=== PATIENT | female | born 1995 | race Two or more races ===

== ENCOUNTER 2017-03-16 18:46 | Emergency (ER) | payer OTHER ==
--- NOTE | 2017-03-16 19:55 | ER Document Report ---
ED Medical Screen (RME) - General Chief Complaint: Vag Bleeding, +preg <12wks Stated Complaint: VAGINAL BLEEDING Time Seen by Provider: 03/16/17 19:50 Notes: This 21-year-old female patient who reports last menstrual period on 12/06/2016, no care at this point, has first OB appointment this week. She states she is blood type O+, she reports brown ready discharge started about 5:30 PM this evening. I have greeted and performed a rapid initial assessment of this patient. A comprehensive ED assessment and evaluation of the patient, analysis of test results and completion of the medical decision making process will be conducted by additional ED providers. TRAVEL OUTSIDE OF THE [place] IN LAST 30 DAYS: No - Related Data Allergies/Adverse Reactions: No Known Allergies Allergy (Verified 03/16/17 19:49) Home Medications: Current Home Medications Pnv,Calcium 72/Iron/Folic Acid [ Plus Tablet] 1 tab PO DAILY 03/16/17 [ History] Past Medical History Renal/ Medical History: Denies: Hx Peritoneal Dialysis Physical Exam - Vital signs Vitals: Temp Pulse Resp BP Pulse Ox 98.9 F 79 16 135/64 H 98 03/16/17 19:08 03/16/17 19:08 03/16/17 19:08 03/16/17 19:08 03/16/17 19:08 Course - Vital Signs Vital signs: Temp Pulse Resp BP Pulse Ox 98.9 F 79 16 135/64 H 98 03/16/17 19:08 03/16/17 19:08 03/16/17 19:08 03/16/17 19:08 03/16/17 19:08
[2017-03-16 20:30] LABS: APPEARANCE,URINE SLIGHTLY-CLOUDY; BILIRUBIN,URINE NEGATIVE (NEGATIVE); GLUCOSE, URINE NEGATIVE (NEGATIVE); KETONES,URINE NEGATIVE (NEGATIVE); LEUKOCYTE ESTERASE,URINE NEGATIVE (NEGATIVE); NITRITE,URINE NEGATIVE (NEGATIVE); PROTEIN,URINE NEGATIVE (NEGATIVE); URINE SPECIFIC GRAVITY 1.024; UROBILINOGEN,URINE NEGATIVE mg/dL (<2.0)
--- NOTE | 2017-03-16 20:51 | RADIOLOGY REPORT (SQ) ---
EXAM DESCRIPTION: U/S OB TRANSVAGINAL W/O DOP COMPLETED DATE/TIME: 03/16/2017 8:32 pm REASON FOR STUDY: brown blood DC today COMPARISON: None. TECHNIQUE: Transabdominal static and realtime grayscale images acquired of the pelvis. Additional se lected spectral and color Doppler images recorded. All images stored on PACs. bHCG: Not available. LIMITATIONS: None. FINDINGS: FETUS: IUP with no detectable cardiac activity. EGA: 9 week 3 day FHR: 0 beats per minute. SUBCHORIONIC BLEED: No. SIZE OF BLEED: Not applicable. UTERUS: No masses. No anomalies. CERVICAL LENGTH: 3.6 cm. Closed. RIGHT ADNEXA: Normal ovary with normal vascular flow. No adnexal free fluid. No adnexal masses. LEFT ADNEXA: Ovary not identified. No adnexal free fluid. No adnexal masses. FREE FLUID: None. IMPRESSION: IUP with no detectable cardiac activity consistent with demise. EGA 9 week 3 day. Trimester of : First - 0 to 13 weeks. TECHNICAL DOCUMENTATION: JOB ID: [id number]- All Rights Reserved
[2017-03-16 21:20] LABS: ALANINE AMINOTRANSFERASE 36 U/L (9-52); ALBUMIN 3.7 g/dL (3.5-5.0); ALKALINE PHOSPHATASE 75 U/L (38-126); ANION GAP 10 (5-19); ASPARTATE AMINO TRANSFERASE 22 U/L (14-36); BILIRUBIN,DIRECT 0.1 mg/dL (0.0-0.4); BILIRUBIN,TOTAL 0.3 mg/dL (0.2-1.3); BLOOD UREA NITROGEN 9 mg/dL (7-20); CALCIUM 9.2 mg/dL (8.4-10.2); CARBON DIOXIDE 24 mmol/L (22-30); CHLORIDE 103 mmol/L (98-107); CREATININE RESULT 0.63 mg/dL (0.52-1.25); GLUCOSE 90 mg/dL (75-110); POTASSIUM 3.8 mmol/L (3.6-5.0); SODIUM 136.8 mmol/L (137-145); TOTAL PROTEIN 6.3 g/dL (6.3-8.2)
--- NOTE | 2017-03-16 21:29 | ER Document Report ---
ED General - General Chief Complaint: Vag Bleeding, +preg <12wks Stated Complaint: VAGINAL BLEEDING Time Seen by Provider: 03/16/17 19:50 Mode of Arrival: Ambulatory Information source: Patient Notes: 21-year-old female 3 is approximately 14 weeks with a history of previous miscarriage and ectopic presents after having sudden brown spotting prior to arrival. Patient denies any abdominal pain denies any bleeding denies any nausea or vomiting TRAVEL OUTSIDE OF THE [place] IN LAST 30 DAYS: No - HPI Onset: Just prior to arrival Onset/Duration: Sudden Quality of pain: No pain Severity: Mild Pain Level: Denies Associated symptoms: None Exacerbated by: Denies Relieved by: Denies Similar symptoms previously: No Recently seen / treated by doctor: No - IUP has not been confirmed - Related Data Allergies/Adverse Reactions: No Known Allergies Allergy (Verified 03/16/17 19:49) Home Medications: Current Home Medications Pnv,Calcium 72/Iron/Folic Acid [ Plus Tablet] 1 tab PO DAILY 03/16/17 [ History] Past Medical History - Social History Smoking Status: Never Smoker Cigarette use (# per day): No Chew tobacco use (# tins/day): No Smoking Education Provided: No Family History: Reviewed & Not Pertinent Patient has suicidal ideation: No Patient has homicidal ideation: No Renal/ Medical History: Denies: Hx Peritoneal Dialysis Review of Systems - Review of Systems Notes: REVIEW OF SYSTEMS: CONSTITUTIONAL : Denies fever, chills, or sweats. Denies recent illness. EENT: Denies eye, ear, throat, or mouth pain or symptoms. Denies nasal or sinus congestion or discharge. Denies throat, tongue, or mouth swelling or difficulty swallowing. CARDIOVASCULAR: Denies chest pain. Denies palpitations or racing or irregular heart beat. Denies ankle edema. RESPIRATORY: Denies cough, cold, or chest congestion. Denies shortness of breath, difficulty breathing, or wheezing. GASTROINTESTINAL: Denies abdominal pain or distention. Denies nausea, vomiting , or diarrhea. Denies blood in vomitus, stools, or per rectum. Denies black, tarry stools. Denies constipation. GENITOURINARY: Denies difficulty urinating, painful urination, burning, frequency, blood in urine, or discharge. FEMALE GENITOURINARY: Admits to brown discharge MUSCULOSKELETAL: Denies back or neck pain or stiffness. Denies joint pain or swelling. SKIN: Denies rash, lesions or sores. HEMATOLOGIC : Denies easy bruising or bleeding. LYMPHATIC: Denies swollen, enlarged glands. NEUROLOGICAL: Denies confusion or altered mental status. Denies passing out or loss of consciousness. Denies dizziness or lightheadedness. Denies headache. Denies weakness or paralysis or loss of use of either side. Denies problems with gait or speech. Denies sensory loss, numbness, or tingling. Denies seizures. PSYCHIATRIC: Denies anxiety or stress. Denies depression, suicidal ideation, or homicidal ideation. ALL OTHER SYSTEMS REVIEWED AND NEGATIVE. PHYSICAL EXAMINATION: GENERAL: Well-appearing, well-nourished and in no acute distress. HEAD: Atraumatic, normocephalic. EYES: Pupils equal round and reactive to light, extraocular movements intact, conjunctiva are normal. ENT: Nares patent, oropharynx clear without exudates. Moist mucous membranes. NECK: Normal range of motion, supple without lymphadenopathy LUNGS: Breath sounds clear to auscultation bilaterally and equal. No wheezes rales or rhonchi. HEART: Regular rate and rhythm without murmurs ABDOMEN: Soft, nontender, nondistended abdomen. No guarding, no rebound. No masses appreciated. Female : deferred Musculoskeletal: Normal range of motion, no pitting or edema. No cyanosis. NEUROLOGICAL: Cranial nerves grossly intact. Normal speech, normal gait. Normal sensory, motor exams PSYCH: Normal mood, normal affect. SKIN: Warm, Dry, normal turgor, no rashes or lesions noted. Dictation was performed using [employer] voice recognition software Physical Exam - Vital signs Vitals: Temp Pulse Resp BP Pulse Ox 98.9 F 79 16 135/64 H 98 03/16/17 19:08 03/16/17 19:08 03/16/17 19:08 03/16/17 19:08 03/16/17 19:08 Course - Re-evaluation Re-evalutation: 03/16/17 22:03 Patient has no abdominal tenderness at all, she is not having any active bleeding, she is not having any discharge, however since an IUP has not been confirmed she was sent for an ultrasound which unfortunately did note demise with no heart rate. Patient's fetus was measured at 9 weeks. I give the report to the patient unfortunately explained to them that she will probably have further bleeding and cramping. Patient will be discharged home with pain medication and nausea medication close follow-up with her primary care physician After performing a Medical Screening Examination, I estimate there is LOW risk for ACUTE APPENDICITIS, BOWEL OBSTRUCTION, ACUTE CHOLECYSTITIS, PERFORATED DIVERTICULITIS, INCARCERATED HERNIA, PANCREATITIS, PELVIC INFLAMMATORY DISEASE, PERFORATED ULCER, ECTOPIC , or TUBO-OVARIAN ABSCESS, thus I consider the discharge disposition reasonable. Also, there is no evidence or peritonitis , sepsis, or toxicity. I have reevaluated this patient multiple times and no significant life threatening changes are noted. The patient and I have discussed the diagnosis and risks, and we agree with discharging home with close follow-up with the understanding that symptoms and presentations can change. We also discussed returning to the Emergency Department immediately if new or worsening symptoms occur. We have discussed the symptoms which are most concerning (e.g., bloody stool, fever, changing or worsening pain, vomiting) that necessitate immediate return. - Vital Signs Vital signs: Temp Pulse Resp BP Pulse Ox 98.9 F 79 16 135/64 H 98 03/16/17 19:08 03/16/17 19:08 03/16/17 19:08 03/16/17 19:08 03/16/17 19:08 - Laboratory Result Diagrams: 03/16/17 20:33 Laboratory results interpreted by me: 03/16/17 19:57 Urine Blood SMALL H - Diagnostic Test Radiology reviewed: Image reviewed, Reports reviewed - demise Discharge - Discharge Clinical Impression: demise Condition: Stable Disposition: HOME, SELF-CARE Additional Instructions: Return immediately if you are bleeding excessively for a long period of time or there are any other concerns Prescriptions: Hydrocodone/Acetaminophen [[place] 5-325 mg Tablet] 1 tab PO Q6 #10 tablet Metoclopramide HCl [Reglan 10 mg Tablet] 1 - 2 tab PO ASDIR PRN #25 tablet PRN Reason: Referrals: GEOVANNA COLON MD [Primary Care Provider] - Follow up in 3-5 days
[2017-03-16 21:42] VITALS: BP 139/82
== END 2017-03-16 21:41 | disposition home or self-care (01) ==
LOC: ER 18:46
DX: O03.9 Complete or unspecified spontaneous abortion without complication (principal)
CPT/HCPCS: 36415; 76817; 80053; 81001; 86900; 86901; 99284

== ENCOUNTER 2018-02-03 18:39 | Emergency (ER) | payer OTHER ==
[2018-02-03 18:52] VITALS: BP 121/62
--- NOTE | 2018-02-03 19:03 | ER Document Report ---
ED General - General Chief Complaint: Headache Stated Complaint: HEADACHE Time Seen by Provider: 02/03/18 18:53 Mode of Arrival: Medic Information source: Patient Notes: 22-year-old female presents emergency department with complaints of a headache. Patient states that it started yesterday at 5:30 PM. She describes the headache as a sharp and stabbing sensation in the left eyebrow distribution. She states that the pain radiates to the left nose and behind the eye. Patient states that it is worse when she bends over. Patient did have associated nausea. She denies any vomiting. Patient states that the pain resolved on its own. She states that this morning she was trying to get the pain to start again. She states that she was trying to increase pressure into her head. She states that she bent over with blowing her nose. She states that the headache started again on its own at 11 AM. She says that once again it was a sharp sensation at the left eyebrow. Worse with bending over. She did not take any medication for symptom relief. She denies any vision changes, speech changes, numbness, tingling, weakness. No eye trauma. Patient also denies any fever, chills, rhinorrhea, sore throat, cough. Patient states that she is 22 weeks . She is been following up with an [employer]. No complications with her . She denies any abdominal pain, vaginal bleeding, vaginal discharge. TRAVEL OUTSIDE OF THE [place] IN LAST 30 DAYS: No - HPI Onset: Yesterday Onset/Duration: Sudden Quality of pain: Stabbing Severity: Mild Associated symptoms: Nausea Exacerbated by: Denies, Other - bending over Relieved by: Denies Similar symptoms previously: No Recently seen / treated by doctor: No - Related Data Allergies/Adverse Reactions: No Known Allergies Allergy (Verified 01/26/18 19:22) Past Medical History - General Information source: Patient - Social History Smoking Status: Never Smoker Chew tobacco use (# tins/day): No Frequency of alcohol use: None Drug Abuse: None Family History: Reviewed & Not Pertinent Patient has suicidal ideation: No Patient has homicidal ideation: No Renal/ Medical History: Denies: Hx Peritoneal Dialysis - Immunizations Immunizations up to date: No Hx Diphtheria, Pertussis, Tetanus Vaccination: Yes Review of Systems - Review of Systems Constitutional: No symptoms reported EENT: No symptoms reported Cardiovascular: No symptoms reported Respiratory: No symptoms reported Gastrointestinal: Nausea Genitourinary: No symptoms reported Female Genitourinary: No symptoms reported Musculoskeletal: No symptoms reported Skin: No symptoms reported Hematologic/Lymphatic: No symptoms reported Neurological/Psychological: No symptoms reported -: Yes All other systems reviewed and negative Physical Exam - Vital signs Vitals: Temp Pulse Resp BP Pulse Ox 98.5 F 89 18 121/62 98 02/03/18 18:49 02/03/18 18:49 02/03/18 18:49 02/03/18 18:49 02/03/18 18:49 - General Notes: PHYSICAL EXAMINATION: GENERAL: Well-appearing, well-nourished and in no acute distress. HEAD: Atraumatic, normocephalic. Frontal sinus tenderness to palpation. L Maxillary sinus tenderness to palpation. Tenderness to palpation distal to the eyebrow. EYES: Pupils equal round and reactive to light, extraocular movements intact, conjunctiva are normal. ENT: Nares patent, oropharynx clear without exudates. Moist mucous membranes. NECK: Normal range of motion, supple without lymphadenopathy LUNGS: Breath sounds clear to auscultation bilaterally and equal. No wheezes rales or rhonchi. HEART: Regular rate and rhythm without murmurs Female : deferred Musculoskeletal: Normal range of motion, no pitting or edema. No cyanosis. NEUROLOGICAL: Cranial nerves grossly intact. Normal speech, normal gait. Normal sensory, motor exams PSYCH: Normal mood, normal affect. SKIN: Warm, Dry, normal turgor, no rashes or lesions noted. Course - Re-evaluation Re-evalutation: 02/03/18 19:09 Exam is remarkable for sinus tenderness to palpation. I told the patient as she bends down and the pain worsens that I believe she might have some sinusitis. Patient denies fever, neck pain, thunder clap headache. I did offered her medication for headache. Patient declines IV or oral medication. Patient declines a urine for evaluation of possible bacteriuria. Patient states that she will just follow up with her primary care physician and OB outpatient. Patient's not currently having any nausea. She appears well- hydrated on exam. Vital signs are normal. Patient is not hypertensive. Patient was instructed to take [id number] Tylenol as needed for symptom relief, to follow-up with her primary care physician and OB this week, and to return to the emergency department if she has a worsening headache, vision changes, speech changes, numbness, tingling, weakness. 02/03/18 20:46 - Vital Signs Vital signs: Temp Pulse Resp BP Pulse Ox 98.5 F 89 16 121/62 98 02/03/18 18:49 02/03/18 18:49 02/03/18 19:01 02/03/18 18:49 02/03/18 18:49 Discharge - Discharge Clinical Impression: Headache Qualifiers: Headache type: unspecified Headache chronicity pattern: unspecified pattern Intractability: intractable Qualified Code(s): R51 - Headache Condition: Good Disposition: HOME, SELF-CARE Instructions: Headache (OM) Referrals: GEOVANNA COLON MD [NO LOCAL MD] - Follow up as needed LYNSEY DOUGLAS MD [ACTIVE STAFF] - Follow up as needed
== END 2018-02-03 19:07 | disposition home or self-care (01) ==
LOC: ER 18:39
DX: O26.892 Other specified pregnancy related conditions, second trimester (principal); R51 Headache; R11.0 Nausea; Z3A.22 22 weeks gestation of pregnancy
CPT/HCPCS: 99284